=== PATIENT | female | born 1975 | race Caucasian/White ===

== ENCOUNTER → 2019-10-24 | Outpatient (CLI) ==
[~2019-10-24] MED LIST: K-TA10TA2 PO; LISI-542 PO; OMEP40CA97 PO; SYNT100T PO
== END ==
LOC: M LABSMTC 10:17 → EDUNIT# 10:35
PROVIDERS: ATTEND Anesthesiology
DX: Z01.818 Encounter for other preprocedural examination (principal); Z11.59 Encounter for screening for other viral diseases
CPT/HCPCS: C9803; U0003

== ENCOUNTER 2019-10-27 10:06 | Day surgery (SDC) | payer BC ==
[~2019-10-27] VITALS: Ht 157.5 cm; Wt 88.9 kg
[~2019-10-27 10:06] MED LIST changes: -K-TA10TA2 PO; +NS 1,000 ML IV SCH
[2019-10-27] MEDS ORDERED: propofoL 200 MG/20 ML VIAL As Ordered ONE ×2 (11:45→11:46)
[2019-10-27] MEDS ORDERED: LIDOCAINE 2% 100MG/5ML SDV (FOR ANES.) As Ordered ONE (11:46)
[2019-10-27] MEDS ORDERED: K-TA10TA2 PO (12:26)
[2019-10-27] MEDS ORDERED: fentaNYL 100 MCG/2 ML INJECTION (J3010) As Ordered ONE (13:41)
--- NOTE | 2019-10-27 14:02 | ROOR ---
Patient Name: Marily Warner Procedure Date: 10/27/2019 1:39 PM Date of : 1975 Age: 44 Room: [facility] Gender: Female Note Status: Finalized Procedure: Upper Endoscopy + Biopsies Indications: Dysphagia Providers: Todd Sanchez MD Referring MD: Kamila Carney Requesting Provider: Medicines: Monitored Anesthesia Care Complications: No immediate complications. Procedure: Pre-Anesthesia Assessment: - The heart rate, respiratory rate, oxygen saturations, blood pressure, adequacy of pulmonary ventilation, and response to care were monitored throughout the procedure. The Endoscope was introduced through the mouth, and advanced to the second part of duodenum. The upper GI endoscopy was accomplished without difficulty. The patient tolerated the procedure well. Findings: The Z-line was irregular and was found 35 cm from the incisors. Multiple biopsies were obtained with cold forceps for evaluation to rule out Torres's Esophagus randomly at the gastroesophageal junction. A small hiatal hernia was present. Localized mild inflammation characterized by congestion (edema) and erythema was found in the gastric antrum. Biopsies were taken with a cold forceps for Helicobacter pylori testing. The exam of the duodenum was otherwise normal. Impression: - Z-line irregular, 35 cm from the incisors. - Small hiatal hernia. - Mucosal changes suspicious for gastritis. Biopsied. - Multiple biopsies were obtained at the gastroesophageal junction. - The examination was otherwise normal. Recommendation: - Patient has a contact number available for emergencies. The signs and symptoms of potential delayed complications were discussed with the patient. Return to normal activities tomorrow. Written discharge instructions were provided to the patient. - High fiber diet. - Discharge patient to home. - Continue present medications. - Await pathology results. - Telephone GI clinic for pathology results in 1 week. - The findings and recommendations were discussed with the patient's family. Todd Sanchez MD Todd Sanchez MD 10/27/2019 2:02:35 PM Electronically signed by Todd Sanchez MD Number of Addenda: 0 Note Initiated On: 10/27/2019 1:39 PM Estimated Blood Loss: Estimated blood loss: none.
[2019-10-27 14:25] VITALS: BP 129/88
== END 2019-10-27 14:35 | disposition home or self-care (01) ==
LOC: M OPP 10:06
PROVIDERS: ATTEND Internal Medicine Gastroenterology
DX: K22.8 Other specified diseases of esophagus (principal); K44.9 Diaphragmatic hernia without obstruction or gangrene; K31.89 Other diseases of stomach and duodenum; R13.10 Dysphagia, unspecified; I10 Essential (primary) hypertension; E03.9 Hypothyroidism, unspecified; Z79.899 Other long term (current) drug therapy
CPT/HCPCS: 43239; 88305; J3010